=== PATIENT | male | born 1965 | race Two or more races ===

== ENCOUNTER 2024-09-15 17:54 | Emergency (ER) | payer OTHER ==
[~2024-09-15] VITALS: Ht 172.7 cm; Wt 75.0 kg
[2024-09-15 18:20] VITALS: O2SAT 99
[2024-09-15 19:14] LABS: BASOPHILS % 0.9 % (0.0-2.0); EOSINOPHILS % 1.5 % (0.0-5.0); HEMATOCRIT. 44.7 % (42.0-52.0); HEMOGLOBIN. 14.9 g/dL (14.0-18.0); LYMPHOCYTES % 32.5 % (20.0-50.0); MEAN CORPUSCULAR HEMOGLOBIN 29.4 pg (28.0-32.0); MEAN CORPUSCULAR HGB CONC 33.4 g/dL (31.0-37.0); MEAN PLATELET VOLUME 9.8 fl (7.4-10.4); MONOCYTES % 5.6 % (2.0-8.0); NEUTROPHILS % 59.5 % (40.0-76.0); PLATELET 171 x1000/uL (130-400); RED BLOOD CELL COUNT 5.08 mill/uL (4.7-6.1); RED CELL DISTRIBUTION WIDTH 13.9 % (11.6-14.6); WHITE BLOOD COUNT 6.3 x1000/uL (4.5-11.0)
[2024-09-15 19:24] LABS: INR 1.1; PROTHROMBIN TIME 11.5 sec (9.6-11.0)
[2024-09-15 19:28] LABS: CHLORIDE 107 mEq/L (98-107); POTASSIUM 4.1 mEq/L (3.5-5.1); SODIUM 143 mEq/L (136-145)
[2024-09-15 19:29] LABS: CARBON DIOXIDE 27 mEq/L (21-32)
[2024-09-15 19:30] LABS: CALCIUM 9.4 mg/dL (8.7-10.4)
[2024-09-15 19:34] LABS: GLUCOSE 88 mg/dL (70-105)
[2024-09-15 19:35] LABS: UREA NITROGEN BLOOD 24 mg/dL (9-23)
[2024-09-15] MEDS: MAGNESIUM/ALUMINUM HYDROXIDE/SIMETHICONE 30ML UDC PO ONE (20:02)
[2024-09-15] MEDS: FAMOTIDINE 20MG TABLET PO ONE (20:03)
[2024-09-15] MEDS: ONDANSETRON 4MG ODT PO ONE (20:03)
[2024-09-15] MEDS: ONDANSETRON HCL 4MG/2ML INJ IV NR (21:06)
[2024-09-15] MEDS: SODIUM CHLORIDE 0.9% 1,000 ML IV NR (21:06)
[2024-09-15] MEDS: FAMOTIDINE 20MG/2ML VIAL IV NR (21:06)
[2024-09-15] MEDS ORDERED: FAMO-135 MT (21:58)
[2024-09-15] MEDS ORDERED: ONDA-239 PO (21:58)
[2024-09-15 22:30] VITALS: BP 120/80; PULSE 72; RESP 18; TEMP 37; O2SAT 99
== END 2024-09-15 22:48 | disposition home or self-care (01) ==
LOC: ER 17:54 → EDBEDREQ 20:31 → ER 22:48
DX: K29.00 Acute gastritis without bleeding (principal); R11.2 Nausea with vomiting, unspecified; Z87.19 Personal history of other diseases of the digestive system
CPT/HCPCS: 80048; 83690; 85025; 85610; 36415; 96361; 96374; 96375; 99284; Q0162; J3490; J2405; Z7610 ×3